=== PATIENT | male | born 1960 | race African-American/Black ===

== ENCOUNTER 2017-03-08 20:19 | Emergency (ER) | payer OTHER ==
[~2017-03-08] VITALS: Ht 172.7 cm; Wt 61.0 kg
[2017-03-08 20:58] VITALS: BP 133/89
[2017-03-08] MEDS ORDERED: IPRATROPIUM BROMIDE (0.02%) 0.5MG/2.5ML NEB HHN STA (21:01)
[2017-03-08] MEDS ORDERED: ALBUTEROL (0.083%) 2.5MG/3ML NEB HHN STA (21:01)
[2017-03-08] MEDS ORDERED: PREDNISONE 20MG TABLET PO STA (21:01)
[2017-03-08] MEDS ORDERED: METHYLPREDNISOLONE SOD SUCC 125 MG/2 ML VIAL IV STA (21:01)
== END 2017-03-09 00:17 | disposition home or self-care (01) ==
LOC: ER 20:54
DX: J45.901 Unspecified asthma with (acute) exacerbation (principal)
CPT/HCPCS: 71010; 94640; 96374; 99285; J2930; J7512; J7611

== ENCOUNTER 2017-03-22 23:02 | Emergency (ER) | payer OTHER ==
[~2017-03-22] VITALS: Ht 154.9 cm; Wt 79.5 kg
[2017-03-22] MEDS ORDERED: METHYLPREDNISOLONE SOD SUCC 125 MG/2 ML VIAL IV STA (23:54)
[2017-03-22] MEDS ORDERED: IPRATROPIUM BROMIDE (0.02%) 0.5MG/2.5ML NEB HHN STA (23:54)
[2017-03-23 00:28] LABS: BASOPHILS % 0.7 % (0.0-2.0); HEMATOCRIT. 41.7 % (42.0-52.0); LYMPHOCYTES % 50.1 % (20.0-50.0); MEAN CORPUSCULAR HEMOGLOBIN 30.9 pg (28.0-32.0); MEAN CORPUSCULAR VOLUME 92.1 fL (80.0-94.0); MONOCYTES % 5.7 % (2.0-8.0); NEUTROPHILS % 36.5 % (40.0-76.0); PLATELET 150 x1000/uL (130-400); RED BLOOD CELL COUNT 4.53 mill/uL (4.7-6.1); RED CELL DISTRIBUTION WIDTH 14.2 % (11.6-14.6)
[2017-03-23] MEDS: ALBUTEROL (0.083%) 2.5MG/3ML NEB HHN SCH ×3 (00:30→01:30)
[2017-03-23 00:34] LABS: PROTHROMBIN TIME 10.1 sec
[2017-03-23 00:42] LABS: CARBON DIOXIDE 26 mEq/L (21-32); CHLORIDE 108 mEq/L (98-107)
[2017-03-23 02:56] VITALS: BP 145/84
== END 2017-03-23 02:59 | disposition home or self-care (01) ==
LOC: ER 23:02
DX: J45.901 Unspecified asthma with (acute) exacerbation (principal); F17.210 Nicotine dependence, cigarettes, uncomplicated; Z71.6 Tobacco abuse counseling
CPT/HCPCS: 36415; 71010; 80053; 85025; 85610; 93005; 94640; 96374; 99285; 99406; J2930; J7611; Z7610

== ENCOUNTER 2017-03-26 18:35 | Inpatient (IN) | payer OTHER ==
[~2017-03-26] VITALS: Ht 154.9 cm; Wt 61.2 kg
[2017-03-26] MEDS ORDERED: METHYLPREDNISOLONE SOD SUCC 125 MG/2 ML VIAL IV STA (18:48)
[2017-03-26] MEDS ORDERED: LEVOFLOXACIN 750MG PREMIX 150 ML IV ONE (19:00)
[2017-03-26] MEDS ORDERED: IPRATROPIUM/ALBUTEROL 0.5-3(2.5)MG/3ML NEB HHN ONE (19:00)
[2017-03-26] MEDS ORDERED: MAGNESIUM 2 G PREMIX 50 ML IV ONE (19:00)
[2017-03-26 19:21] LABS: BASOPHILS % 0.3 % (0.0-2.0); EOSINOPHILS % 2.2 % (0.0-5.0); HEMATOCRIT. 42.2 % (42.0-52.0); HEMOGLOBIN. 14.1 g/dL (14.0-18.0); LYMPHOCYTES % 58.1 % (20.0-50.0); MEAN CORPUSCULAR VOLUME 92.9 fL (80.0-94.0); MEAN PLATELET VOLUME 9.3 fl (7.4-10.4); MONOCYTES % 8.5 % (2.0-8.0); NEUTROPHILS % 30.9 % (40.0-76.0); PLATELET 167 x1000/uL (130-400); RED BLOOD CELL COUNT 4.54 mill/uL (4.7-6.1)
[2017-03-26 19:27] LABS: CARBON DIOXIDE 25 mEq/L (21-32); CHLORIDE 108 mEq/L (98-107); CREATINE KINASE 102 IU/L (39-308); TROPONIN I < 0.02 ng/mL (0.00-0.04)
[2017-03-26 21:50] VITALS: BP 123/82
[2017-03-26] MEDS ORDERED: HYDROCODONE/ACETAMINOPHEN 5/325MG TABLET PO PRN (23:45)
[2017-03-26] MEDS ORDERED: IPRATROPIUM/ALBUTEROL 0.5-3(2.5)MG/3ML NEB HHN PRN (23:45)
[2017-03-26] MEDS: METHYLPREDNISOLONE SOD SUCC 40 MG/ML VIAL IV SCH (23:59)
[2017-03-27] VITALS: BP 140/94
[2017-03-27] MEDS: POTASSIUM CHLORIDE 20MEQ TABLET SR PO SCH ×3 (00:04→05:22)
[2017-03-27 00:32] LABS: CLARITY URINE CLEAR (CLEAR); COLOR URINE YELLOW (YELLOW); GLUCOSE URINE NEGATIVE (NEGATIVE); KETONES URINE NEGATIVE (NEGATIVE); LEUKOCYTE ESTERASE URINE NEGATIVE (NEGATIVE); NITRITE URINE NEGATIVE (NEGATIVE); OCCULT BLOOD URINE NEGATIVE (NEGATIVE); PROTEIN URINE NEGATIVE (NEGATIVE); SPECIFIC GRAVITY URINE 1.026 (1.005-1.030); UROBILINOGEN URINE 0.2 E.U./dL (0.2-1.0)
[2017-03-27 00:54] LABS: *AMPHETAMINES SCREEN URINE NEGATIVE (NEGATIVE); *BARBITURATES SCREEN URINE NEGATIVE (NEGATIVE); *BENZODIAZEPINES SCREEN URINE NEGATIVE (NEGATIVE); *COCAINE SCREEN URINE NEGATIVE (NEGATIVE); CANNABINOID URINE SCREEN NEGATIVE (NEGATIVE); METHADONE URINE SCREEN NEGATIVE (NEGATIVE); OPIATES URINE SCREEN PRESUMTIVE POSITIVE (NEGATIVE); PHENCYCLIDINE URINE SCREEN NEGATIVE (NEGATIVE)
[2017-03-27] MEDS: IPRATROPIUM/ALBUTEROL 0.5-3(2.5)MG/3ML NEB HHN SCH ×6 (01:05→19:47)
[2017-03-27 04:00] VITALS: BP 128/87
[2017-03-27] MEDS: METHYLPREDNISOLONE SOD SUCC 40 MG/ML VIAL IV SCH ×3 (08:24→21:19)
[2017-03-27 08:28] VITALS: BP 136/82
[2017-03-27] MEDS: BUDESONIDE 0.5MG/2ML NEB HHN SCH ×2 (09:34→19:47)
[2017-03-27 18:00] VITALS: BP 122/73
[2017-03-27 20:52] VITALS: BP 132/91
[2017-03-28] VITALS: BP 124/78
[2017-03-28] MEDS: IPRATROPIUM/ALBUTEROL 0.5-3(2.5)MG/3ML NEB HHN SCH ×4 (00:10→12:53)
[2017-03-28 04:00] VITALS: BP 111/77
[2017-03-28 08:00] VITALS: BP 120/82
[2017-03-28] MEDS: BUDESONIDE 0.5MG/2ML NEB HHN SCH (08:27)
[2017-03-28] MEDS: METHYLPREDNISOLONE SOD SUCC 40 MG/ML VIAL IV SCH (08:56)
[2017-03-28 12:00] VITALS: BP 112/73
[2017-03-28 15:14] VITALS: BP 112/73
== END 2017-03-28 16:45 | disposition home or self-care (01) | DRG 133 ==
LOC: ER 18:50 → 6WST 19:54 → EDBEDREQ 19:56 → ENRESERV 20:12 → CMPBEDREQ 22:10
PROVIDERS: ADMIT Internal Medicine; ATTEND Internal Medicine
DX: J96.00 Acute respiratory failure, unspecified whether with hypoxia or hypercapnia (principal); E87.2 Acidosis; J45.901 Unspecified asthma with (acute) exacerbation; E87.6 Hypokalemia; Z60.2 Problems related to living alone; Z82.49 Family history of ischemic heart disease and other diseases of the circulatory system
CPT/HCPCS: 36415; 71010; 80053; 80305; 81003; 82550; 83605; 83690; 83735; 83880; 84484; 85025; 85610; 87040; 93005; 94640; 94664; 96365; 96375; 99285; J1956; J2920; J2930; J3475; J7620; J7626